=== PATIENT | female | born 1955 | race Caucasian/White ===

== ENCOUNTER 2024-08-17 10:40 | Emergency (ER) | payer MEDICARE, MEDICAID ==
[~2024-08-17] VITALS: Ht 152.4 cm; Wt 48.2 kg
[2024-08-17 10:56] VITALS: PULSE 84; RESP 16; O2SAT 97
--- NOTE | 2024-08-17 11:00 | ED.PDOC ---
History of Present Illness HPI Comments 69-year-old female with PMHx HTN presents with a chief complaint of abnormal labs, malaise, and fatigue. Patient states that she had blood work recently done and found out today at her follow-up appointment at Dr. Mcginnis's office that her Sodium is 128 and "Kidney Function is low". Patient denies any symptoms other than feeling general malaise and fatigue. No other symptoms or modifying factors present at this time. Time Seen by MD: 10:51 Reviewed Notes: Nurses Notes (NKDA ), Medications, Allergies Allergies: Coded Allergies: NO KNOWN ALLERGIES (Unverified , 08/15/23) Information Source: Patient Mode of Arrival: Ambulatory Severity: Moderate Timing: Days Duration: Since onset Prehospital treatment: None Past Medical History PAST MEDICAL HISTORY: HTN Surgical History: Appendectomy, , Hysterectomy Surgical History (Other): HIP REPAIR, NECK FRACTURE SURGERY STATION GATEMAN History: Denies all STATION GATEMAN Hx, Unobtainable Family History Family History: Reviewed,noncontributory to illness Social History Smoker: Non-Smoker Alcohol: Denies ETOH Use Drugs: Denies Drug Use Lives In: Home Constitutional: reports: fatigue, malaise; denies: chills, diaphoresis, fever, sweats, weakness, others EENTM: denies: blurred vision, double vision, ear bleeding, ear discharge, ear drainage, ear pain, ear ringing, eye pain, eye redness, hearing loss, mouth pain, mouth swelling, nasal discharge, nose bleeding, nose congestion, nose pain, photophobia, tearing, throat pain, throat swelling, voice changes, others Respiratory: denies: cough, hemoptysis, orthopnea, SOB at rest, shortness of breath, SOB with excertion, stridor, wheezing, others Cardiovascular: denies: chest pain, dizzy spells, diaphoresis, Dyspnea on exertion, edema, irregular heart beat, left arm pain, lightheadedness, palpitati ons, PND, syncope, others Gastrointestinal: denies: abdomen distended, abdominal pain, blood streaked bowels, constipated, diarrhea, dysphagia, difficulty swallowing, hematemesis, melena, nausea, poor appetite, poor fluid intake, rectal bleeding, rectal pain, vomiting, others Genitourinary: denies: abnormal vagina bleeding, burning, dyspareunia, dysuria, flank pain, frequency, hematuria, incontinence, pain, , vagina discharge, urgency, others Neurological: denies: dizziness, fainting, headache, left sided numbness, left sided weakness, numbness, paresthesia, pre-existing deficit, right sided numbness, right sided weakness, seizure, speech problems, tingling, tremors, weakness, others Musculoskeletal: denies: back pain, gout, joint pain, joint swelling, muscle pain, muscle stiffness, neck pain, others Integumetry: denies: bruises, change in color, change in hair/nails, dryness, laceration, lesions, lumps, rash, wounds, others Allergic/Immunocompromised: denies: Difficulty Healing, Frequent Infections, Hives, Itching, others Hematologic/Lymphatic: denies: anemia, blood clots, easy bleeding, easy bruisin g, swollen glands, others Endocrine: denies: excessive hunger, excessive sweating, excessive thirst, excessive urination, flushing, intolerance to cold, intolerance to heat, unexplained weight gain, unexplained weight loss, others Psychiatric: denies: anxiety, bipolar disorder, depression, hopeless, panic disorder, schizophrenia, sleepless, suicidal, others All Other Systems: Reviewed and Negative Physical Exam General Appearance: No Apparent Distress HEENT: Normal ENT Inspection, Pharynx Normal, TMs Normal Neck: Full Range of Motion, Non-Tender, Normal, Normal Inspection Respiratory: Chest Non-Tender, Lungs Clear, No Accessory Muscle Use, No Respiratory Distress, Normal Breath Sounds Cardiovascular: No Edema, No JVD, No Murmur, No Gallop, Normal Peripheral Pulses, Regular Rate/Rhythm Breast Exam: Deferred Gastrointestinal: No Organomegaly, Non Tender, No Pulsatile Mass, Normal Bowel Sounds, Soft Genitalia: Deferred Pelvic: Deferred Rectal: Deferred Extremities: No calf tenderness, Normal capillary refill, Normal inspection, Normal range of motion, Non-tender, No pedal edema Musculoskeletal : Apperance: Normal Neurologic: Alert, production support supervisor II-XII nml as Tested, No Motor Deficits, Normal Affect, Normal Mood, No Sensory Deficits Cerebellar Function: Normal Reflexes: Normal Skin: Dry, Normal Color, Warm Lymphatic: No Adenopathy Was a procedure done? Was a procedure done?: No Differential Dx Considerations may include: Electrolyte imbalance, kidney failure, generalized weakness X-Ray, Labs, Meds, VS Vital Signs Date Time Temp Pulse Resp B/P (MAP) Pulse Ox O2 Delivery O2 Flow Rate FiO2 08/17/24 12:01 98.2 76 15 140/91 (107) 98 98.2 08/17/24 10:56 84 16 97 Room Air* 0 21 Lab Test 08/17/24 11:08 08/17/24 10:50 Range/Units White Blood Count 4.9 4.4-10.8 10^3/uL Red Blood Count 4.36 4.0-5.20 10^6/uL Hemoglobin 13.1 12.2-16.2 g/dL Hematocrit 38.7 36.0-46.0 % Mean Corpuscular Volume 88.7 80.0-100.0 fL Mean Corpuscular Hemoglobin 30.1 28.0-32.0 pg Mean Corpuscular Hemoglobin Concent 33.9 32.0-36.0 g/dL Red Cell Distribution Width 13.3 11.8-14.3 % Platelet Count 298 140-450 10^3/uL Mean Platelet Volume 7.3 6.9-10.8 fL Neutrophils (%) (Auto) 59.8 37.0-80.0 % Lymphocytes (%) (Auto) 25.4 10.0-50.0 % Monocytes (%) (Auto) 7.2 0.0-12.0 % Eosinophils (%) (Auto) 6.5 0.0-7.0 % Basophils (%) (Auto) 1.1 0.0-2.0 % Neutrophils # (Auto) 2.9 1.6-8.6 10 ^3/uL Lymphocytes # (Auto) 1.2 0.4-5.4 10 ^3/uL Monocytes # (Auto) 0.4 0-1.3 10 ^3/uL Eosinophils # (Auto) 0.3 0-0.8 10 ^3/uL Basophils # (Auto) 0.1 0-0.2 10 ^3/uL Nucleated Red Blood Cells 0.0 % Sodium Level 137 136-145 mmol/L Potassium Level 4.1 3.5-5.1 mmol/L Chloride Level 105 98-107 mmol/L Carbon Dioxide Level 26 20-31 mmol/L Anion Gap 6 5-15 Blood Urea Nitrogen 9 9-23 mg/dL Creatinine 0.97 0.550-1.02 mg/dL Glomerular Filtration Rate Calc 64 >90 mL/min BUN/Creatinine Ratio 9.3 L 10.0-20.0 Serum Glucose 88 74-106 mg/dL Calcium Level 10.2 8.7-10.4 mg/dL Urine Color Yellow Yellow Urine Clarity Clear Clear Urine pH 5.5 5.0-9.0 Urine Specific [place] 1.015 1.001-1.035 Urine Protein Negative Negative Urine Ketones Negative Negative Urine Blood Negative Negative /uL Urine Nitrite Negative Negative Urine Bilirubin Negative Negative Urine Urobilinogen Normal Negative mg/dL Urine Leukocyte Esterase Negative Negative /uL Urine RBC 1 0 - 4 /hpf Urine Microscopic WBC 1 0-5 /HPF Urine Squamous Epithelial Cells Few <5 /hpf Urine Bacteria None seen None Seen /hpf Urine Hyaline Casts Few 0 - 2 /lpf Urine Mucus Few None Seen Urine Glucose Normal Normal mg/dL Current Medications Medications (Trade) Dose Ordered Sig/Britta Route Start Time Stop Time Status Last Admin Sodium Chloride 500 ml @ 500 mls/hr Q1H ONCE IV 08/17/24 11:00 08/17/24 11:59 DC 08/17/24 11:10 The patient's CBC is within normal limits The chemistry panel is within normal limits The urine test is negative The patient was given normal saline at a 500 cc bolus The patient was being discharged with a diagnosis of fatigue Time of 1ST Reevaluation: 11:21 Reevaluation 1ST: Unchanged Patient Education/Counseling: Diagnosis, Treatment, Prognosis, Need For Follow Up Family Education/Counseling: No Family Present Departure 1 Departure Time of Disposition: 12:08 Impression: Primary Impression: Fatigue Qualified Codes: R53.83 - Other fatigue Disposition: 01 HOME / SELF CARE / HOMELESS Condition: Fair Discharged With: Self Critical Care Note Critical Care Time?: No Stability Stability form required: No Heart Score Heart Score: Heart Score Response (Comments) Value History N/A 0 EKG N/A 0 Age N/A 0 Risk Factors N/A 0 Troponin N/A 0 Total 0 I personally scribed for DIANE QUINONEZ MD ([email or web address]) on 08/17/24 at 11:00. Philly ctronically submitted by Jason Vogel ([email or web address]). DIANE QUINONEZ MD Aug 17, 2024 11:00
[2024-08-17] MEDS: SODIUM CHLORIDE 0.9% 500 ML IV ONE (11:10)
[2024-08-17 11:31] LABS: Basophils # (auto) 0.1 10 ^3/uL (0-0.2); Basophils % (auto) 1.1 % (0.0-2.0); Eosinophils # (auto) 0.3 10 ^3/uL (0-0.8); Eosinophils % (auto) 6.5 % (0.0-7.0); Hematocrit 38.7 % (36.0-46.0); Hemoglobin 13.1 g/dL (12.2-16.2); Lymphocytes # (auto) 1.2 10 ^3/uL (0.4-5.4); Lymphocytes % (auto) 25.4 % (10.0-50.0); Mean Corpuscular Hemoglobin 30.1 pg (28.0-32.0); Mean Corpuscular Hgb Conc. 33.9 g/dL (32.0-36.0); Mean Corpuscular Volume 88.7 fL (80.0-100.0); Monocytes # (auto) 0.4 10 ^3/uL (0-1.3); Monocytes % (auto) 7.2 % (0.0-12.0); Neutrophils # (auto) 2.9 10 ^3/uL (1.6-8.6); Neutrophils % (auto) 59.8 % (37.0-80.0); Platelet Count (auto) 298 10^3/uL (140-450); Red Blood Cells 4.36 10^6/uL (4.0-5.20); Red Cell Distribution Width 13.3 % (11.8-14.3); White Blood Cell 4.9 10^3/uL (4.4-10.8)
[2024-08-17 11:43] LABS: Anion Gap 6 (5-15); Carbon Dioxide 26 mmol/L (20-31); Chloride 105 mmol/L (98-107); Potassium 4.1 mmol/L (3.5-5.1); Sodium 137 mmol/L (136-145)
[2024-08-17 11:44] LABS: Calcium 10.2 mg/dL (8.7-10.4)
[2024-08-17 11:44] LABS: Urine Bacteria None Seen /hpf (None Seen)
[2024-08-17 11:49] LABS: BUN/Creatinine Ratio 9.3 (10.0-20.0); Blood Urea Nitrogen 9 mg/dL (9-23); Glucose 88 mg/dL (74-106)
[2024-08-17 12:00] LABS: Urine Blood Negative /uL (Negative); Urine Clarity Clear (Clear); Urine Color Yellow (Yellow); Urine Hyaline Cast FEW /lpf (0 - 2); Urine Mucus FEW (None Seen); Urine Protein, UAD Negative (Negative); Urine Specific Gravity 1.015 (1.001-1.035); Urine Squamous Epithelial Cell FEW /hpf (<5); Urine Urobilinogen Normal (Negative); Urine WBC 1 /HPF (0-5); Urine pH 5.5 (5.0-9.0)
[2024-08-17 12:01] VITALS: BP 140/91; PULSE 76; RESP 15; TEMP 98.2; O2SAT 98
== END 2024-08-17 12:38 | disposition home or self-care (01) ==
LOC: ER 10:43
DX: R53.83 Other fatigue (principal); I10 Essential (primary) hypertension; Z90.49 Acquired absence of other specified parts of digestive tract; Z90.710 Acquired absence of both cervix and uterus; Z98.890 Other specified postprocedural states
CPT/HCPCS: 36415; 80048; 81001; 85025

== ENCOUNTER → 2024-10-03 | Outpatient (CLI) | payer MEDICARE, MEDICAID ==
[2024-10-03 12:01] LABS: Amphetamine Screen, Urine Neg (NEGATIVE); Barbiturate Scree,Urine Neg (NEGATIVE); Benzodiazephine Screen, Urine Neg (NEGATIVE); Opiate Scree,Urine Pos (NEGATIVE)
[2024-10-03 12:02] LABS: Cannabinoid Screen, Urine Pos (NEGATIVE); Cocaine Screen, Urine Neg (NEGATIVE); Phencyclidine Screen, Urine Neg (NEGATIVE)
== END | disposition home or self-care (01) ==
LOC: LAB 11:32
PROVIDERS: ATTEND Family Medicine
DX: M41.80 Other forms of scoliosis, site unspecified (principal); M54.50 Low back pain, unspecified; G89.4 Chronic pain syndrome; Z98.1 Arthrodesis status
CPT/HCPCS: 80307

== ENCOUNTER 2024-12-27 21:41 | Inpatient (IN) | payer MEDICAID ==
[~2024-12-27] VITALS: Ht 147.3 cm; Wt 50.4 kg
--- NOTE | 2024-12-27 22:00 | ECG ---
[facility] Test Date: 2024-12-27 Test Time: 21:52:30 Pat Name: TIMMY BERG Department: ED Room: 0288 Gender: F Poultry Debeaker: ANAND : 1955 Requested By: DIOGO FISHER Order Number: [id number] Reading MD: Bran Little Measurements Intervals [place] Rate: 78 P: 51 TN: 157 QRS: 60 QRSD: 86 T: 63 QT: 432 QTc: 493 Interpretive Statements Sinus rhythm Atrial premature complex Probable left atrial enlargement RSR' in V1 or V2, probably normal variant Borderline prolonged QT interval Electronically Signed On 01-02-2025 17:49:52 PDT by Bran Little Please click the below link to view image of tracing.
--- NOTE | 2024-12-27 23:01 | ED.PDOC ---
HPI Comments 69-year-old female history of depression, anxiety, hypertension, fibromyalgia through, and chronic neck pain was brought in by emergency services with a chief complaint of high blood pressure, with the associated nausea, vomiting, dizziness, and generalized weakness. Patient states her symptoms started approximately 30 minutes before: Emergency services, patient states her blood pressure was 183 systolic, after taking 2 of her lisinopril, patient notes she did not improve, and her blood pressure was 199/100 on route. Denies any abdominal pain, back pain blurry vision, or any other associated symptoms at this time. PHYSICAL EXAM: General: Awake, alert and oriented. No acute distress. Skin: Skin in warm, dry and intact. Appropriate color for ethnicity. HEENT: The head is normocephalic and atraumatic. Conjunctivae are clear without exudates or hemorrhage. Sclera is non-icteric. EOM are intact. No signs of nystagmus. Eyelids are normal in appearance without swelling or lesions. Oral mucosa is pink and moist Neck: The neck is supple with normal range of motion. No JVD. Cardiac: Tachycardic Respiratory: No signs of respiratory distress. Lung sounds are clear in all lobes bilaterally without rales, rhonchi, or wheezes. Abdominal: Abdomen is soft, non-tender without distention, guarding or rigidity. Bowel sounds are present and normoactive in all four quadrants. Extremities: Upper and lower extremities are atraumatic in appearance without deformity or edema. Neurological: The patient is awake, alert and oriented to person, place, and time. Speech is slurred which patient states is chronic since a neck injury There is no facial asymmetry. Psychiatric: Appropriate mood and affect. Good judgement and insight. REVIEW OF SYSTEMS: No fever, no chills, or fatigue HEENT: No sore throat, no earache, no congestion, no neck pain. Cardiac: No chest pain. No palpitations. Tachycardic Lungs: No shortness of breath, no cough. GI: + nausea, + vomiting, no diarrhea, no constipation, no abdominal pain : No dysuria, frequency, or urgency. No hematuria. Musculoskeletal: No joint pain , no joint swelling, no extremity edema. Skin: No rash, no itching. Neuro: No headache, no dizziness, no weakness Chief Complaint: High Blood Pressure Time Seen by MD: 22:57 Primary Care Provider: TATYANA Reviewed Notes: Nurses Notes, Veneer Puller Notes, Medications, Allergies Allergies: Coded Allergies: Hydromorphone (Verified Allergy, Unknown, 12/27/24) Information Source: Patient, Emergency Med Personnel Mode of Arrival: EMS Severity: Moderate Timing: Minutes Duration: Since onset, Minutes Prehospital treatment: 12 Lead EKG, Accucheck, Final Touch Up Painter Location: Chest (L) Radiation: No Radiation Quality: Pressure Onset: At Rest Cardiac Risk Factors: HTN PE Risk Factors: None History of: None Modifying Factors: Exertion Associated Signs and Symptoms: N/V Past Medical History PAST MEDICAL HISTORY: HTN Surgical History: Appendectomy, , Hysterectomy TAG MARKER History: Denies all TAG MARKER Hx, Unobtainable Family History Family History: Reviewed,noncontributory to illness Social History Smoker: Non-Smoker Alcohol: Denies ETOH Use Drugs: Denies Drug Use Lives In: Home EKG EKG : Comments EKG Name: TIMMY BERG Acct: [id number] [place] [address] ELECTROCARDIOGRAM REPORT PATIENT: TIMMY BERG ACCT: [id number] : 1955 LOC: ER ROOM / BED: / AGE / SEX: 69 / F ADM STATUS: REG ER SERVICE UNIT: [id number] ORDERING PHYSICIAN: DIOGO FISHER MD PROCEDURE(s): EKG - ELECTROCARDIGRAM ORDER NUMBER(s): [id number], ACCESSION NUMBER(s): [id number] [facility] Test Date: 2024-12-27 Test Time: 21:52:30 Pat Name: TIMMY BERG Department: ED Room: Gender: F Senior Credit Officer: ANAND : 1955 Requested By: DIOGO FISHER Order Number: [id number] Reading MD: Measurements Intervals [place] Rate: 78 P: 51 [place]: 157 QRS: 60 QRSD: 86 T: 63 QT: 432 QTc: 493 Interpretive Statements Sinus rhythm Atrial premature complex Probable left atrial enlargement RSR' in V1 or V2, probably normal variant Borderline prolonged QT interval Please click the below link to view image of tracing. DICTATED BY: DICTATED DATE/TIME:08/05/25 2152 ELECTRONICALLY SIGNED BY: ELECTRONICALLY CO-SIGNED BY: Was a procedure done? Was a procedure done?: No CP Differential Dx Differential Diagnosis: A-fib, Angina, Anxiety / Panic Attack, Electrolyte Disorder, Pulmonary Embolus Differential Diagnosis: HTN Accelerated, HTN Encephalopathy Differential Diagnosis: Angina, Cholelithiasis, Esophageal reflux/spasm, Gastritis, Pericarditis, Pneumonia, Pulmonary Embolus X-Ray, Labs, Meds, VS Vital Signs Date Time Temp Pulse Resp B/P (MAP) Pulse Ox O2 Delivery O2 Flow Rate FiO2 12/27/24 21:53 98.1 70 16 180/98 98 98.1 12/27/24 21:52 78 Lab Test 12/27/24 22:49 Range/Units White Blood Count 6.1 4.4-10.8 10^3/uL Red Blood Count 4.45 4.0-5.20 10^6/uL Hemoglobin 14.0 12.2-16.2 g/dL Hematocrit 40.8 36.0-46.0 % Mean Corpuscular Volume 91.7 80.0-100.0 fL Mean Corpuscular Hemoglobin 31.4 28.0-32.0 pg Mean Corpuscular Hemoglobin Concent 34.3 32.0-36.0 g/dL Red Cell Distribution Width 12.4 11.8-14.3 % Platelet Count 272 140-450 10^3/uL Mean Platelet Volume 6.9 6.9-10.8 fL Neutrophils (%) (Auto) 66.1 37.0-80.0 % Lymphocytes (%) (Auto) 17.8 10.0-50.0 % Monocytes (%) (Auto) 7.2 0.0-12.0 % Eosinophils (%) (Auto) 7.8 H 0.0-7.0 % Basophils (%) (Auto) 1.1 0.0-2.0 % Neutrophils # (Auto) 4.1 1.6-8.6 10 ^3/uL Lymphocytes # (Auto) 1.1 0.4-5.4 10 ^3/uL Monocytes # (Auto) 0.4 0-1.3 10 ^3/uL Eosinophils # (Auto) 0.5 0-0.8 10 ^3/uL Basophils # (Auto) 0.1 0-0.2 10 ^3/uL Nucleated Red Blood Cells 0.0 % Sodium Level 129 L 136-145 mmol/L Potassium Level 3.6 3.5-5.1 mmol/L Chloride Level 99 98-107 mmol/L Carbon Dioxide Level 19 L 20-31 mmol/L Anion Gap 11 5-15 Blood Urea Nitrogen 11 9-23 mg/dL Creatinine 0.84 0.550-1.02 mg/dL Glomerular Filtration Rate Calc 76 >90 mL/min BUN/Creatinine Ratio 13.1 10.0-20.0 Serum Glucose 85 74-106 mg/dL Calcium Level 9.4 8.7-10.4 mg/dL Troponin I High Sensitivity 10 </=34 ng/L B-Type Natriuretic Peptide 44.23 0-100 pg/mL Time of 1ST Reevaluation: 23:28 Reevaluation 1ST: Unchanged Patient Education/Counseling: Diagnosis, Treatment, Need For Follow Up Family Education/Counseling: No Family Present SEPSIS Sepsis Screen Date sepsis recognized/suspect: Dec 27, 2024 Time Sepsis recognized/suspect: 2150 Recent Procedure: No On Antibiotic Therapy: No Respiratory Rate >20: No Heart Rate >90: No Temp<36 C (96.8 F) or >38.3 C: No SBP <90 or MAP <65 mmHG: No New Acute Mental Status Change: No Is the patient on CPAP, BIPAP,: No Physician Orders Saline Lock (12/27/24 23:45) Free Water Restriction (12/27/24 23:45) Urine Sodium (12/27/24 23:46) Urinalysis (12/27/24 23:46) Vital Signs Date Time Temp Pulse Resp B/P (MAP) Pulse Ox O2 Delivery O2 Flow Rate FiO2 12/27/24 21:53 98.1 70 16 180/98 98 98.1 12/27/24 21:52 78 Laboratory Tests Test 12/27/24 22:49 White Blood Count 6.1 10^3/uL (4.4-10.8) Departure 1 Departure Time of Disposition: 23:45 Impression: Primary Impression: Hyponatremia Disposition: ADMITTED INPATIENT Condition: Guarded Comments Patient admitted to hospitalist service for further treatment, evaluation and monitoring. Critical Care Note Critical Care Time?: No Stability Stability form required: No Heart Score Heart Score: Heart Score Response (Comments) Value History N/A 0 EKG N/A 0 Age N/A 0 Risk Factors N/A 0 Troponin N/A 0 Total 0 I personally scribed for DIOGO FISHER MD ([email or web address]) on 12/27/24 at 23:01. Electronically submitted by Chun Boateng ([email or web address]). DIOGO FISHER MD Dec 27, 2024 23:01
[2024-12-27 23:06] LABS: Hematocrit 40.8 % (36.0-46.0); Hemoglobin 14.0 g/dL (12.2-16.2); Mean Corpuscular Hemoglobin 31.4 pg (28.0-32.0); Mean Corpuscular Volume 91.7 fL (80.0-100.0); Nucleated Red Blood Cells % 0.0 %
[2024-12-27 23:14] LABS: Chloride 99 mmol/L (98-107); Potassium 3.6 mmol/L (3.5-5.1)
[2024-12-27 23:15] LABS: Anion Gap 11 (5-15); Calcium 9.4 mg/dL (8.7-10.4)
[2024-12-27 23:19] LABS: Carbon Dioxide 19 mmol/L (20-31); Sodium 129 mmol/L (136-145)
[2024-12-27 23:20] LABS: BUN/Creatinine Ratio 13.1 (10.0-20.0); Blood Urea Nitrogen 11 mg/dL (9-23); Glucose 85 mg/dL (74-106)
[2024-12-28] VITALS (7 sets, daily range): BP systolic 130–156; BP diastolic 71–89; PULSE 84–114; RESP 16–19; TEMP 97.5–98.6; O2SAT 94–96
--- NOTE | 2024-12-28 00:33 | DVHHPRES ---
History of Present Illness Resident Creating Document: RAJEEV GRAVES RESIDENT History of Present Illness Tiffanie Daniel is a 69 year old female with past medical history of fibromyalgia, depression, anxiety, hypertension, and chronic neck pain. The patient was brought in by emergency services with a chief complaint of 1 day of elevate blood pressure and diffused tension headache 5/10, concomitant dizziness, nausea, vomiting #2 , dizziness, and generalized weakness. The patient took lisinopril 20 mg prior to the visit to the ED without improvement. EMS report BP 198/120mmHg. Initial evaluation in the ED showed BP of 180/98mmHg. The patient denies chest pain, palpitation, changes in vision or any other symptoms. Patient reports she is compliant with BP medications. Cardiovascular: HTN Psych: Anxiety, Depression Musculoskeletal: Other (Chronic cervical pain due to traumatic fall. ) Rheumatologic: Fibromyalgia Past Surgical History: Other (Neck surgery due to traumatic fall), Total hip replacement ([place]) Family History: None Smoke: No ALCOHOL: none Drugs: None Lives: Friends Past Social History Nicotine vape Review of Systems Constitutional: No: Fever, Chills, Sweats, Weakness, Malaise, Other Eyes: No: Pain, Vision change, Conjunctivae inflammation, Eyelid inflammation, Other, Redness ENT: No: Ear pain, Ear discharge, Nose pain, Nose discharge, Nose congestion, Mouth pain, Mouth swelling, Throat pain, Throat swelling, Other Respiratory: No: Cough, Dry, Shortness of breath, SOB with excertion, Wheezing, Hemoptysis, Pleuritic Pain, Sputum, Wheezing, Other Cardiovascular: No: Chest Pain, Palpitations, Orthopnea, Paroxysmal Noc. Dyspnea, Edema, Lt Headedness, Other Gastrointestinal: Nausea, Vomiting; No: Abdominal Pain, Diarrhea, Constipation, Melena, Hematochezia, Other Genitourinary: No Dysuria, No Frequency, No Incontinence, No Hematuria, No Retention, No Other Musculoskeletal: neck pain (Chronic); No: other, shoulder pain, arm pain, back pain, hand pain, leg pain, foot pain Skin: No: Rash, Lesions, Jaundice, Bruising, Other Neurological: Other (headache, no visual changes. Dizziness); No: Weakness, Numbness, Incoordination, Change in speech, Confusion, Seizures Allergies: Coded Allergies: Hydromorphone (Verified Allergy, Unknown, 12/27/24) Exam Vital Signs Vital Signs Date Time Temp Pulse Resp B/P (MAP) Pulse Ox O2 Delivery O2 Flow Rate FiO2 12/27/24 21:53 98.1 70 16 180/98 98 98.1 General Appearance: Alert, Oriented X3, Cooperative, mild distress HEENT: Atraumatic, PERRLA, Mucous membr. moist/pink Respiratory: Clear to auscultation, Normal air movement Cardiovascular: Regular rate, Normal S1, Normal S2, No murmurs Abdominal: Normal bowel sounds, Soft, No tenderness, No hepatospenomegaly, No masses Extremities: No clubbing, No cyanosis, No edema, Normal pulses, No tenderness/swelling Skin: No rashes, No breakdown, No significant lesion Neuro: Normal gait, Normal speech, Normal tone, Sensation intact, Cranial nerves 3-12 NL Psych/Mental Status: Mental status NL, Mood NL Labs/Xrays Labs Test 12/27/24 22:49 Range/Units White Blood Count 6.1 4.4-10.8 10^3/uL Red Blood Count 4.45 4.0-5.20 10^6/uL Hemoglobin 14.0 12.2-16.2 g/dL Hematocrit 40.8 36.0-46.0 % Mean Corpuscular Volume 91.7 80.0-100.0 fL Mean Corpuscular Hemoglobin 31.4 28.0-32.0 pg Mean Corpuscular Hemoglobin Concent 34.3 32.0-36.0 g/dL Red Cell Distribution Width 12.4 11.8-14.3 % Platelet Count 272 140-450 10^3/uL Mean Platelet Volume 6.9 6.9-10.8 fL Neutrophils (%) (Auto) 66.1 37.0-80.0 % Lymphocytes (%) (Auto) 17.8 10.0-50.0 % Monocytes (%) (Auto) 7.2 0.0-12.0 % Eosinophils (%) (Auto) 7.8 H 0.0-7.0 % Basophils (%) (Auto) 1.1 0.0-2.0 % Neutrophils # (Auto) 4.1 1.6-8.6 10 ^3/uL Lymphocytes # (Auto) 1.1 0.4-5.4 10 ^3/uL Monocytes # (Auto) 0.4 0-1.3 10 ^3/uL Eosinophils # (Auto) 0.5 0-0.8 10 ^3/uL Basophils # (Auto) 0.1 0-0.2 10 ^3/uL Nucleated Red Blood Cells 0.0 % Sodium Level 129 L 136-145 mmol/L Potassium Level 3.6 3.5-5.1 mmol/L Chloride Level 99 98-107 mmol/L Carbon Dioxide Level 19 L 20-31 mmol/L Anion Gap 11 5-15 Blood Urea Nitrogen 11 9-23 mg/dL Creatinine 0.84 0.550-1.02 mg/dL Glomerular Filtration Rate Calc 76 >90 mL/min BUN/Creatinine Ratio 13.1 10.0-20.0 Serum Glucose 85 74-106 mg/dL Calcium Level 9.4 8.7-10.4 mg/dL Troponin I High Sensitivity 10 </=34 ng/L SEPSIS Sepsis Screen Date sepsis recognized/suspect: Dec 27, 2024 Time Sepsis recognized/suspect: 2150 Recent Procedure: No On Antibiotic Therapy: No Respiratory Rate >20: No Heart Rate >90: No Temp<36 C (96.8 F) or >38.3 C: No SBP <90 or MAP <65 mmHG: No New Acute Mental Status Change: No Is the patient on CPAP, BIPAP,: No Physician Orders Saline Lock (12/27/24 23:45) Free Water Restriction (12/27/24 23:45) Urine Sodium (12/27/24 23:46) Urinalysis (12/27/24 23:46) Vital Signs Date Time Temp Pulse Resp B/P (MAP) Pulse Ox O2 Delivery O2 Flow Rate FiO2 12/27/24 21:53 98.1 70 16 180/98 98 98.1 12/27/24 21:52 78 Laboratory Tests Test 12/27/24 22:49 White Blood Count 6.1 10^3/uL (4.4-10.8) Assessment/Plan Assessment/Plan #Hypertensive urgency Hydralazine 10mg IV EKG #Fibromyalgia #Chronic Neck pain Balcofen 10 mg po #Depression #Anxiety Medication reconciliation. #Hyponatremia IV NS Cardiac diet DVT prophylaxis- Patient deambulates PUD prophylaxis Protonic Goals of care discussed with the patient > 35 min. Discussed plan of care with Dr. Sidiqui Code status: Full code PCP: Dr. Liza Shaffer Plan discussed with: Patient, the patient agrees with the plan. Plan discussed with: Patient Common Visit Codes: 12959-RFLHJZN INP/OBS CARE (HIGH) Secondary Visit Codes: 40544-EXRACCOI CARE PLAN 30 MINUTES RAJEEV GRAVES RESIDENT Dec 28, 2024 00:33
--- NOTE | 2024-12-28 02:07 | DVH ---
CHEST RADIOGRAPH Indication: Chest pain Technique: Single frontal view of the chest was obtained Comparison: XY CHEST XRAY 1 VIEW on DOS: 08/15/23 FINDINGS: Lines and Tubes: None Lungs: Mild pulmonary vascular congestion. No focal consolidation. Pleura: No effusion. No pneumothorax. Cardiomediastinal contours: Unremarkable Bones: No acute osseous abnormality. Cervical ACDF. IMPRESSION: 1. Mild pulmonary vascular congestion. No focal consolidation.
[2024-12-28 09:41] LABS: Hematocrit 43.3 % (36.0-46.0); Hemoglobin 14.9 g/dL (12.2-16.2); Mean Corpuscular Hemoglobin 31.2 pg (28.0-32.0); Mean Corpuscular Volume 90.5 fL (80.0-100.0); Nucleated Red Blood Cells % 0.1 %
[2024-12-28 09:54] LABS: Chloride 101 mmol/L (98-107); Potassium 4.1 mmol/L (3.5-5.1)
[2024-12-28 09:55] LABS: Anion Gap 12 (5-15); Calcium 10.0 mg/dL (8.7-10.4); Carbon Dioxide 21 mmol/L (20-31)
[2024-12-28 10:00] LABS: Blood Urea Nitrogen 11 mg/dL (9-23); Glucose 87 mg/dL (74-106)
[2024-12-28 10:03] LABS: Sodium 134 mmol/L (136-145)
[2024-12-28 10:04] LABS: BUN/Creatinine Ratio 12.9 (10.0-20.0)
[2024-12-28] MEDS: hydrALAZINE HCL 20 MG/ML VL IV ONE (11:11)
[2024-12-28] MEDS: BACLOFEN 10 MG TAB PO ONE (11:12)
[2024-12-28] MEDS: PANTOPRAZOLE 40 MG TAB PO ONE (11:12)
[2024-12-28] MEDS: ONDANSETRON HCL 4 MG/2 ML VIAL IV PRN (11:13)
[2024-12-28 12:27] LABS: Urine Protein, UAD Negative (Negative)
[2024-12-28 13:13] LABS: Cannabinoid Screen, Urine Pos (NEGATIVE); Opiate Scree,Urine Neg (NEGATIVE)
[2024-12-28 13:18] LABS: Amphetamine Screen, Urine Neg (NEGATIVE); Barbiturate Scree,Urine Neg (NEGATIVE); Benzodiazephine Screen, Urine Neg (NEGATIVE); Cocaine Screen, Urine Neg (NEGATIVE); Phencyclidine Screen, Urine Neg (NEGATIVE)
--- NOTE | 2024-12-28 14:38 | DVHPNRES ---
Progress Note Date Seen: Dec 28, 2024 Resident Creating Document: JAMIE BENSON Medical Necessity Reason Pt with a Central, PICC or Fol: No Subjective Review of Systems Patient is a 69-year-old female with past medical history of fibromyalgia, cervical fusion leading to chronic neck pain, depression, bilateral hip replacement surgery, scoliosis, anxiety, hypertension who comes in due to elevated blood pressure. According to the patient, yesterday on 12/27/2024 she checked her blood pressure and found it to be in 180/100 after which she took 1 dose of lisinopril, later when she checked her blood pressure it continued to be elevated with systolic in the 180s which is what prompted her to call the EMS and come to the hospital. Patient notes that she saw her PCP yesterday who had prescribed her amlodipine 5 mg to be added to her antihypertensive regimen, however, patient notes she has not had a chance to orange picker the prescription yet. Reports taking lisinopril 40 mg at home. Patient notes previously blood pressure has remained somewhat stable, however, lately it has been elevated and uncontrolled. Past surgical history: Bilateral hip replacement surgery, cervical fusion surgery Social & Personal history: Denies smoking, alcohol, drugs. Lives alone at home. Allergies: Dilaudid Patient seen and examined at bedside. Patient is alert and oriented to time, place person and responding to all questions. General: Notes slight dizziness Eyes: No Pain, No Vision change, No Conjunctivae inflammation, No Eyelid inflammation, No Other, No Redness ENT: No Ear pain, No Ear discharge, No Nose pain, No Nose discharge, No Nose congestion, No Mouth pain, No Mouth swelling, No Throat pain, No Throat swelling, No Other Cardiovascular: No Chest Pain, Palpitations, No Orthopnea, No Paroxysmal No Dyspnea, No Edema, No Lt Headedness, No Other Respiratory: No Cough, No Dry, No Shortness of breath, No SOB with exertion, No Wheezing, No Hemoptysis, No Pleuritic Pain, No Sputum, No Other Gastrointestinal: Nausea, No Vomiting, No Abdominal Pain, No Diarrhea, No Constipation, No Melena, No Hematochezia, No Other Genitourinary: No Dysuria, No Frequency, No Incontinence, No Hematuria, R etention, No Other Musculoskeletal: No other, No neck pain, No shoulder pain, No arm pain, No back pain, No hand pain, No leg pain, No foot pain Skin: No Rash, No Lesions, No Jaundice, No Bruising, No Other Objective vital signs Vital Sign Date Time Temp Pulse Resp B/P (MAP) Pulse Ox O2 Delivery O2 Flow Rate FiO2 12/28/24 13:00 97.9 94 16 147/89 (108) 96 97.9 12/28/24 12:29 Room Air* 0 21 medications Current Medications Medications Dose Ordered Sig/Britta Route Start Time Stop Time Status Last Admin Dose Admin Acetaminophen/ Hydrocodone Bitart 1 tab Q4HP PRN PO 12/28/24 00:45 Ondansetron HCl 4 mg Q4HP PRN IV 12/28/24 00:45 12/28/24 11:13 4 MG Morphine Sulfate 2 mg Q4HPRN PRN IV 12/28/24 00:45 Amlodipine Besylate 10 mg DAILY PO 12/29/24 10:00 Examination General Appearance: Cooperative. Well developed. Well nourished. NAD Head Exam: Normal inspection Neck Exam: Normal inspection. Non-tender. Normal alignment Pulmonary/Respiratory: Chest non-tender. Clear bilateral breath sounds, trace crackles, no wheezing. Cardiovascular/Chest: Regular rate and rhythm. No murmurs. No JVD. Peripheral Pulses: 2+ Radial (R). 2+ Radial (L). 2+ Pedal (R). 2+ Pedal (L) Abdominal Exam: Normal bowel sounds. Soft. normal abdomen, no visible veins, Nontender. No hepatospenomegaly. No masses Lower extremities: Negative lower extremity edema Neuro/Mental Status: A&O x4. Coherent. Thoughts/Psych: Normal thought pattern. Appropriate mood and affect. Good judgement and insight Skin Exam: Normal inspection. Normal color. Warm. Dry laboratory and microbiology Laboratory Tests 12/28/24 09:29 Test 12/28/24 09:29 Range/Units Serum Glucose 87 74-106 mg/dL Labs and/or images reviewed: Labs reviewed by me, Image(s) reviewed by me Problem List/Assessment/Plan Problem List/Assessment/Plan # Hypertensive urgency versus emergency # Essential hypertension - CXR: Mild pulmonary vascular congestion. No focal consolidation - IV hydralazine 10 mg once - amlodipine 10 mg p.o. daily - lisinopril 40 mg p.o. daily # Chronic pain syndrome - Fibromyalgia - Morphine sulfate 2mg - [place] 1 Tab # History of depression, likely MDD # History of anxiety # Hyponatremia, chronic and asymptomatic - Sodium: 129 > 134 Goals of care: Full code, discussed for >16 minutes on 12/28/24 Plan discussed with patient Plan discussed with Dr. Li Plan discussed with: Patient, Other (RN) My Orders My Orders Orders - JAMIE BENSON Procedure Category Date Status Time Amlodipine Tablet PHA 12/29/24 In Process (Norvasc Tablet) 10:00 Complete Blood Count LAB 12/29/24 Verified 04:00 Basic Metabolic Panel LAB 12/29/24 Verified 04:00 Date of Service: Dec 28, 2024 Billing Provider: ABHIJIT LI MD Common Visit Codes: [id number] INP/OBS CARE(HIGH) Secondary Visit Codes: [id number] CARE PLAN 30 MINUTES JAMIE BENSON RESIDENT Dec 28, 2024 14:38 NATHANIEL OCHOA RESIDENT Dec 28, 2024 15:30 ABHIJIT LI MD Jan 01, 2025 21:26
[2024-12-28] MEDS: HYDROcodone-ACET 5/325MG TAB PO PRN (15:19)
[2024-12-28] MEDS ORDERED: HYDR-4798 PO (16:17)
[2024-12-28] MEDS ORDERED: MIN25T PO (16:17)
[2024-12-28] MEDS ORDERED: IBUP-1456 PO (16:17)
[2024-12-28] MEDS ORDERED: OMEP20TA PO (16:17)
[2024-12-28] MEDS ORDERED: CETI-176 PO (16:17)
[2024-12-28] MEDS ORDERED: GABA-1250 PO (16:17)
[2024-12-28] MEDS ORDERED: LISI40TA16 PO (16:17)
[2024-12-28] MEDS ORDERED: LINA1CAP2 PO (16:17)
[2024-12-28] MEDS ORDERED: METH-1182 PO (16:17)
[2024-12-28] MEDS ORDERED: BUPR-133 PO (16:17)
[2024-12-28] MEDS ORDERED: BUPR20DI TOP (16:17)
[2024-12-28] MEDS ORDERED: AMIT10TA12 PO (16:19)
[2024-12-28] MEDS ORDERED: TRAZ1TAB12 PO (16:19)
[2024-12-28] MEDS: MORPHINE SULFATE INJ 2 MG/ml SYRG IV PRN (17:55)
[2024-12-29] VITALS (7 sets, daily range): BP systolic 100–138; BP diastolic 67–91; PULSE 91–111; RESP 16–20; TEMP 97.5–99.3; O2SAT 94–97
[2024-12-29] MEDS: hydrALAZINE HCL 20 MG/ML VL IV ONE (00:24)
[2024-12-29] MEDS: ALPRAZolam 0.5 MG TAB PO ONE (04:08)
[2024-12-29 07:59] LABS: Hematocrit 46.4 % (36.0-46.0); Hemoglobin 16.5 g/dL (12.2-16.2); Mean Corpuscular Hemoglobin 32.2 pg (28.0-32.0); Mean Corpuscular Volume 90.8 fL (80.0-100.0); Nucleated Red Blood Cells % 0.3 %
[2024-12-29] MEDS ORDERED: BUPRENORPHINE TOP SCH (08:00)
[2024-12-29 08:09] LABS: Chloride 104 mmol/L (98-107); Potassium 4.0 mmol/L (3.5-5.1); Sodium 139 mmol/L (136-145)
[2024-12-29 08:10] LABS: Anion Gap 11 (5-15); Calcium 10.1 mg/dL (8.7-10.4); Carbon Dioxide 24 mmol/L (20-31)
[2024-12-29 08:15] LABS: BUN/Creatinine Ratio 14.7 (10.0-20.0); Blood Urea Nitrogen 11 mg/dL (9-23)
[2024-12-29 08:22] LABS: Glucose 109 mg/dL (74-106)
[2024-12-29] MEDS: SODIUM CHLORIDE 0.9% 1,000 ML IV SCH (09:59)
[2024-12-29] MEDS: HYDROcodone-ACET 10/325MG TAB PO PRN (13:07)
[2024-12-29] MEDS: GABAPENTIN 300 MG CAP PO SCH (15:14)
[2024-12-29] MEDS: LISINOPRIL 20 MG TAB PO SCH (17:33)
--- NOTE | 2024-12-29 17:59 | DVHPNRES ---
Progress Note Date Seen: Dec 29, 2024 Resident Creating Document: JAMIE BENSON Medical Necessity Reason Pt with a Central, PICC or Fol: No Subjective Review of Systems Patient is a 69-year-old female with past medical history of fibromyalgia, cervical fusion leading to chronic neck pain, depression, bilateral hip replacement surgery, scoliosis, anxiety, hypertension who comes in due to elevated blood pressure. According to the patient, yesterday on 12/27/2024 she checked her blood pressure and found it to be in 180/100 after which she took 1 dose of lisinopril, later when she checked her blood pressure it continued to be elevated with systolic in the 180s which is what prompted her to call the EMS and come to the hospital. Patient notes that she saw her PCP yesterday who had prescribed her amlodipine 5 mg to be added to her antihypertensive regimen, however, patient notes she has not had a chance to picker packer the prescription yet. Reports taking lisinopril 40 mg at home. Patient notes previously blood pressure has remained somewhat stable, however, lately it has been elevated and uncontrolled. On the evening patient experienced elevated blood pressure (175/88) and anxiety attack. Patient also complains of worsening headache. Patient seen at bedside. Patient's current medication were reviewed, headache was suspected to be due to polypharmacy. Medication regimen was adjusted. Patient denies any hematemesis, hemoptysis, night sweats, tremors, visual hallucinations. Objective vital signs Vital Sign Date Time Temp Pulse Resp B/P (MAP) Pulse Ox O2 Delivery O2 Flow Rate FiO2 12/29/24 16:51 98.1 91 18 134/91 (105) 95 98.1 12/29/24 08:00 Room Air* 0 21 Total Intake and Output 12/28/24 12/28/24 12/29/24 15:00 23:00 07:00 Intake Total 600 ml 840 ml Balance 600 ml 840 ml medications Current Medications Medications Dose Ordered Sig/Britta Route Start Time Stop Time Status Last Admin Dose Admin Ondansetron HCl 4 mg Q4HP PRN IV 12/28/24 00:45 12/29/24 03:29 4 MG Morphine Sulfate 2 mg Q4HPRN PRN IV 12/28/24 00:45 12/29/24 10:33 2 MG Amlodipine Besylate 10 mg DAILY PO 12/29/24 10:00 12/29/24 09:53 10 MG Lisinopril 40 mg DAILY PO 12/29/24 18:00 Trazodone HCl 150 mg QPM PO 12/29/24 04:00 12/29/24 04:08 150 MG Patient Own Medication 1 patch QWEEKLY TOP 12/29/24 08:00 Hold Bupropion HCl 150 mg DAILY PO 12/29/24 10:00 12/29/24 09:53 150 MG Sodium Chloride 1,000 ml @ 60 mls/hr [id number] IV 12/29/24 07:30 12/29/24 09:59 60 MLS/HR Acetaminophen/ Hydrocodone Bitart 1 tab Q6HP PRN PO 12/29/24 10:15 12/29/24 13:07 1 TAB Gabapentin 300 mg TID PO 12/29/24 14:00 12/29/24 15:14 300 MG Buspirone HCl 7.5 mg Q12HR PO 12/29/24 22:00 Examination General Appearance: Cooperative. Well developed. Well nourished. NAD Head Exam: Normal inspection Neck Exam: Normal inspection. Non-tender. Normal alignment Pulmonary/Respiratory: Chest non-tender. Clear bilateral breath sounds, trace crackles, no wheezing. Cardiovascular/Chest: Regular rate and rhythm. No murmurs. No JVD. Peripheral Pulses: 2+ Radial (R). 2+ Radial (L). 2+ Pedal (R). 2+ Pedal (L) Abdominal Exam: Normal bowel sounds. Soft. normal abdomen, no visible veins, Nontender. No hepatospenomegaly. No masses Lower extremities: Negative lower extremity edema Neuro/Mental Status: A&O x4. Coherent. Thoughts/Psych: Normal thought pattern. Appropriate mood and affect. Good judgement and insight Skin Exam: Normal inspection. Normal color. Warm. Dry laboratory and microbiology Laboratory Tests 12/29/24 06:43 Test 12/29/24 06:43 Range/Units Serum Glucose 109 H 74-106 mg/dL Labs and/or images reviewed: Labs reviewed by me, Image(s) reviewed by me Problem List/Assessment/Plan Problem List/Assessment/Plan # Hypertensive urgency versus emergency # Essential hypertension - CXR: Mild pulmonary vascular congestion. No focal consolidation - IV hydralazine 10 mg once - amlodipine 10 mg p.o. daily - lisinopril 40 mg p.o. daily # Chronic pain syndrome - Fibromyalgia - Morphine sulfate 2mg - [place] 1 Tab - Gabapentin 400 mg # History of depression, likely MDD # History of anxiety -Buspiron 7,5 mg -Buproprion 150 mg -Trazidibe 150 mg # Hyponatremia, chronic and asymptomatic - Sodium: 129 > 134 Goals of care: Full code, discussed for >16 minutes on 12/29/24 Plan discussed with patient Plan discussed with Dr. Li Plan discussed with: Patient, Other (RN) My Orders My Orders Orders - JAMIE BENSON Procedure Category Date Status Time Hydrocodone-Acet PHA 12/29/24 In Process 10/325mg Tab ([place] 10:15 Date of Service: Dec 29, 2024 Billing Provider: ABHIJIT LI MD Common Visit Codes: [id number] INP/OBS CARE(HIGH) JAMIE BENSON Dec 29, 2024 17:59 ABHIJIT LI MD Jan 01, 2025 21:26
[2024-12-30 01:00] VITALS: BP 121/78; PULSE 90; RESP 18; TEMP 98.6; O2SAT 95
[2024-12-30 05:00] VITALS: BP 135/78; PULSE 86; RESP 17; TEMP 97.8; O2SAT 97
[2024-12-30 07:03] LABS: COVID19 ANTIGEN SOFIA FIA NEGATIVE (NEGATIVE)
[2024-12-30 08:00] VITALS: PULSE 81; RESP 18
[2024-12-30 08:02] LABS: Chloride 104 mmol/L (98-107); Potassium 3.8 mmol/L (3.5-5.1); Sodium 136 mmol/L (136-145)
[2024-12-30 08:03] LABS: Anion Gap 9 (5-15); Calcium 9.6 mg/dL (8.7-10.4); Carbon Dioxide 23 mmol/L (20-31); Hematocrit 39.1 % (36.0-46.0); Hemoglobin 13.5 g/dL (12.2-16.2); Mean Corpuscular Hemoglobin 31.5 pg (28.0-32.0); Mean Corpuscular Volume 91.1 fL (80.0-100.0); Nucleated Red Blood Cells % 0.1 %
[2024-12-30 08:08] LABS: Glucose 96 mg/dL (74-106)
[2024-12-30 08:09] LABS: BUN/Creatinine Ratio 11.1 (10.0-20.0); Blood Urea Nitrogen 9 mg/dL (9-23)
[2024-12-30 09:00] VITALS: BP 123/78; PULSE 81; RESP 19; TEMP 98.9; O2SAT 92
[2024-12-30] MEDS: SODIUM CHLORIDE 0.9% 1,000 ML IV SCH (12:29)
[2024-12-30] MEDS ORDERED: AMLO1TAB22 PO (12:59)
[2024-12-30 13:00] VITALS: BP 125/83; PULSE 78; RESP 19; TEMP 98.1; O2SAT 95
--- NOTE | 2024-12-30 14:45 | DVHDSRES ---
Discharge Summary Date of Admission Resident Creating Document: JAMIE BENSON RESIDENT Dec 28, 2024 at 00:33 Date of Discharge: Dec 30, 2024 Admitting Diagnosis Elevated blood pressure Labs/Diagnostic Data: Laboratory Results Test 12/30/24 06:23 12/29/24 05:52 12/28/24 12:10 12/27/24 22:49 White Blood Count 5.2 10^3/uL (4.4-10.8) Red Blood Count 4.29 10^6/uL (4.0-5.20) Hemoglobin 13.5 g/dL (12.2-16.2) Hematocrit 39.1 % (36.0-46.0) Mean Corpuscular Volume 91.1 fL (80.0-100.0) Mean Corpuscular Hemoglobin 31.5 pg (28.0-32.0) Mean Corpuscular Hemoglobin Concent 34.6 g/dL (32.0-36.0) Red Cell Distribution Width 12.3 % (11.8-14.3) Platelet Count 302 10^3/uL (140-450) Mean Platelet Volume 7.6 fL (6.9-10.8) Neutrophils (%) (Auto) 53.4 % (37.0-80.0) Lymphocytes (%) (Auto) 27.9 % (10.0-50.0) Monocytes (%) (Auto) 8.4 % (0.0-12.0) Eosinophils (%) (Auto) 8.5 % (0.0-7.0) Basophils (%) (Auto) 1.8 % (0.0-2.0) Neutrophils # (Auto) 2.8 10 ^3/uL (1.6-8.6) Lymphocytes # (Auto) 1.4 10 ^3/uL (0.4-5.4) Monocytes # (Auto) 0.4 10 ^3/uL (0-1.3) Eosinophils # (Auto) 0.4 10 ^3/uL (0-0.8) Basophils # (Auto) 0.1 10 ^3/uL (0-0.2) Nucleated Red Blood Cells 0.1 % Sodium Level 136 mmol/L (136-145) Potassium Level 3.8 mmol/L (3.5-5.1) Chloride Level 104 mmol/L (98-107) Carbon Dioxide Level 23 mmol/L (20-31) Anion Gap 9 (5-15) Blood Urea Nitrogen 9 mg/dL (9-23) Creatinine 0.81 mg/dL (0.550-1.02) Glomerular Filtration Rate Calc 80 mL/min (>90) BUN/Creatinine Ratio 11.1 (10.0-20.0) Serum Glucose 96 mg/dL (74-106) Calcium Level 9.6 mg/dL (8.7-10.4) Influenza Type A Antigen Negative (Negative) Influenza Type B Antigen Negative (Negative) SARS-CoV-2 Antigen (Rapid) Negative (NEGATIVE) Urine Color Colorless (Yellow) Urine Clarity Clear (Clear) Urine pH 6.0 (5.0-9.0) Urine Specific [place] 1.006 (1.001-1.035) Urine Protein Negative (Negative) Urine Ketones 1+ (Negative) Urine Blood Negative /uL (Negative) Urine Nitrite Negative (Negative) Urine Bilirubin Negative (Negative) Urine Urobilinogen Normal mg/dL (Negative) Urine Leukocyte Esterase Trace /uL (Negative) Urine RBC None seen /hpf (0 - 4) Urine Microscopic WBC 2 /HPF (0-5) Urine Squamous Epithelial Cells Few /hpf (<5) Urine Bacteria None seen /hpf (None Seen) Urine Sodium 15 mmol/L (40-220) Urine Glucose Normal mg/dL (Normal) Urine Opiates Screen Neg (NEGATIVE) Urine Fentanyl Screen Neg (NEGATIVE) Urine Barbiturates Screen Neg (NEGATIVE) Urine Phencyclidine Screen Neg (NEGATIVE) Urine Amphetamines Screen Neg (NEGATIVE) Urine Benzodiazepines Screen Neg (NEGATIVE) Urine Cocaine Screen Neg (NEGATIVE) Urine Cannabinoids Screen Pos (NEGATIVE) Troponin I High Sensitivity 10 ng/L (</=34) B-Type Natriuretic Peptide 44.23 pg/mL (0-100) Other Laboratory Tests 12/30/24 06:23 Brief Hx & Hospital Course: The patient is a 69-year-old female with a past medical history of fibromyalgia, chronic neck pain status post cervical fusion, bilateral hip replacements, scoliosis, depression, anxiety, and hypertension who presented with hypertensive urgency. On 12/27/2024, she noted a blood pressure of 180/100 at home despite taking her usual lisinopril 40 mg. She had seen her PCP earlier that day, who prescribed amlodipine 5 mg, but she had not yet started it. Persistent elevated systolic pressures prompted her to call EMS and present to the hospital. On admission, the patient was alert and oriented, reporting mild dizziness but no chest pain, shortness of breath, or other acute symptoms. Physical exam was unremarkable. Chest X-ray showed mild pulmonary vascular congestion without focal consolidation. Labs revealed chronic, asymptomatic hyponatremia. She was treated with a one-time dose of IV hydralazine and started on amlodipine 10 mg PO daily in addition to continuing lisinopril 40 mg PO daily. Blood pressure improved with medical management. Her chronic pain syndrome related to fibromyalgia was managed with low-dose morphine and [place] as needed. Her psychiatric history of depression and anxiety remained stable during hospitalization. The patient report that their current medication were reviewed and discontinuation of amitriptyline was recommended. The patient was discharged in stable condition with improved blood pressure control and follow-up recommendations. General Appearance: Cooperative. Well developed. Well nourished. NAD Head Exam: Normal inspection Neck Exam: Normal inspection. Non-tender. Normal alignment Pulmonary/Respiratory: Chest non-tender. Clear bilateral breath sounds, trace crackles, no wheezing. Cardiovascular/Chest: Regular rate and rhythm. No murmurs. No JVD. Peripheral Pulses: 2+ Radial (R). 2+ Radial (L). 2+ Pedal (R). 2+ Pedal (L) Abdominal Exam: Normal bowel sounds. Soft. normal abdomen, no visible veins, Nontender. No hepatospenomegaly. No masses Lower extremities: Negative lower extremity edema Neuro/Mental Status: A&O x4. Coherent. Thoughts/Psych: Normal thought pattern. Appropriate mood and affect. Good judgement and insight Skin Exam: Normal inspection. Normal color. Warm. Dry Operations or Procedures PROCEDURE(s): CXR1 - CHEST XRAY 1 VIEW REASON: Chest pain ORDER NUMBER(s): [id number], ACCESSION NUMBER(s): [id number] CHEST RADIOGRAPH Indication: Chest pain Technique: Single frontal view of the chest was obtained Comparison: XY CHEST XRAY 1 VIEW on DOS: 08/15/23 FINDINGS: Lines and Tubes: None Lungs: Mild pulmonary vascular congestion. No focal consolidation. Pleura: No effusion. No pneumothorax. Cardiomediastinal contours: Unremarkable Bones: No acute osseous abnormality. Cervical ACDF. IMPRESSION: 1. Mild pulmonary vascular congestion. No focal consolidation. - PROCEDURE(s): EKG - ELECTROCARDIGRAM ORDER NUMBER(s): [id number], ACCESSION NUMBER(s): [id number] [facility] Test Date: 2024-12-27 Test Time: 21:52:30 Pat Name: TIMMY BERG Department: ED Room: Gender: F [place] Operations Consultant: ANAND : 1955 Requested By: DIOGO FISHER Order Number: [id number] Reading MD: Measurements Intervals [place] Rate: 78 P: 51 UT: 157 QRS: 60 QRSD: 86 T: 63 QT: 432 QTc: 493 Interpretive Statements Sinus rhythm Atrial premature complex Probable left atrial enlargement RSR' in V1 or V2, probably normal variant Borderline prolonged QT interval Please click the below link to view image of tracing. DICTATED BY: DICTATED DATE/TIME:12/27/242151 Condition at Discharge: Stable (RN) Final Diagnosis/Problems List # Hypertensive urgency versus emergency # Essential hypertension # Chronic pain syndrome - Fibromyalgia # History of depression, likely MDD # History of anxiety # Hyponatremia, chronic and asymptomatic Discharge Disposition: Home Discharge Instruct/Medications Diet: Cardiac 2g Na,low cholest Activity: No Restrictions, As Tolerated Follow Up/Referral: Please follow up with PCP at your earliest convenience to reduce polypharmacy Medications: Amlodipine 5 mg p.o. daily Lisinopril 40 mg p.o. daily Discontinued amitriptyline Discontinued ibuprofen Continue other home medications. Scheduled Amlodipine Besylate (Amlodipine Besylate), 1 TAB PO DAILY Buprenorphine (Butrans), 1 PATCH TOP QWEEKLY, (Reported) Bupropion Hcl (Bupropion Hcl Er), 1 TAB PO DAILY, (Reported) Gabapentin (Gabapentin), 1 CAP PO TID, (Reported) Hydrocodone-Acetaminophen (Hydrocodone Bitartrate/AC 10-325 mg), 1 TAB PO Q6HP, (Reported) Linaclotide Base (Linzess), 72 MCG PO DAILY, (Reported) Lisinopril (Lisinopril), 1 TAB PO DAILY, (Reported) Methocarbamol (Methocarbamol), 750 MG PO TID, (Reported) Minoxidil (Loniten), 1 TAB PO BID, (Reported) Omeprazole (Gnp Omeprazole), 1 TAB PO DAILY, (Reported) Trazodone Hcl (Trazodone Hcl), 1 TAB PO QPM, (Reported) Discontinued Medications Amitriptyline Hcl (Amitriptyline Hcl), 1 TAB PO QPM, (Reported) Cetirizine Hcl (Zyrtec Allergy), 10 MG PO DAILY, (Reported) Ibuprofen (Ibuprofen), 1 TAB PO PRN, (Reported) Discharge Statement: "Patient was advised to return to the ER or call 911 if any headaches, dizziness, shortness of breath, chest pain, abdominal pain, bleeding, fevers, or worsening of medical condition. Patient was counseled about treatment plan, medications, possible side effects, patientverbalized understanding. All questions were answered to the best of my ability. This discharge took greater then 30 minutes in planning, reviewing documentation, counseling the patient, and discussing with other team members." ASSESSMENT ASSESSMENT Assessment # Hypertensive urgency versus emergency # Essential hypertension # Chronic pain syndrome - Fibromyalgia # History of depression, likely MDD # History of anxiety # Hyponatremia, chronic and asymptomatic Date of Service: Dec 30, 2024 Billing Provider: ABHIJIT WRIGHT MD Common Visit Codes: [id number] DISCH DAY >30min JAMIE BENSON RESIDENT Dec 30, 2024 14:45 ABHIJIT WRIGHT MD Jan 01, 2025 21:27
[2024-12-30 14:49] VITALS: BP 123/73; TEMP 36.7
== END 2024-12-30 15:45 | disposition home or self-care (01) | DRG 305 ==
LOC: EDBD 21:41 → EDUNIT# 21:41 → ER 21:41 → OVERFLOW 12-28 00:33 → WEST WING 12-28 16:03 → TELE-WESTW 12-30 11:51 → WEST WING 12-30 13:36
PROVIDERS: ADMIT Internal Medicine Geriatric Medicine; ATTEND Internal Medicine Geriatric Medicine
DX: I16.1 Hypertensive emergency (principal); E87.1 Hypo-osmolality and hyponatremia; M79.7 Fibromyalgia; F41.9 Anxiety disorder, unspecified; G89.4 Chronic pain syndrome; F32.9 Major depressive disorder, single episode, unspecified; Z90.710 Acquired absence of both cervix and uterus; Z98.891 History of uterine scar from previous surgery; Z96.643 Presence of artificial hip joint, bilateral; Z79.899 Other long term (current) drug therapy
CPT/HCPCS: 36415; 71045; 80048; 80307; 81001; 83880; 84300; 84484; 85025; 87426; 87804; 93005; G0378; J2405